=== PATIENT | female | born 1955 | race Caucasian/White ===

== ENCOUNTER 2016-05-11 19:09 | Emergency (ER) | payer MEDICAID ==
[~2016-05-11 19:09] MED LIST: COLACE-DPS100 MG PO; ELIQUIS5 MG PO; HYDROCODONE 5MG/5 MG PO; HYDRODIURIL-DPS25 MG PO; MAALOX DPS30 ML PO; PRAVACHOL40 MG PO; SURFAK DPS240 MG PO; SYNTHROID DP0.075 MG PO; TYLENOL DPS325 MG PO
--- NOTE | 2016-05-12 13:41 | ER ---
ADMIT: 05/11/2016 RM/LOC: ER [facility] MR#: [id number] [address] [facility] [address] [place], [place] [address] JESSA TORRESBRITTNEYGA Demetrio [address] [place] [id number] Emergency Room Report SEX: F AGE: 60 : 1955 DATE: 05/11/2016 HISTORY OF PRESENT ILLNESS: The patient is a 60-year-old female with past medical history of prediabetic and atrial fibrillation, on Eliquis, who came to the ER with chief complaint of right vulvar mass and tenderness and pain and pus discharge for the last 15 days, which is getting worse. The patient states she has similar episodes in the past, which resolved spontaneously but this one is getting bigger. The patient denies any followup for this problem. The patient denies any fever at home or any vaginal bleeding or discharge. PHYSICAL EXAMINATION: There is about wound 1 x 1 cm fluctuation on the right labia majora in the vulvar area, outside the labia majora in the vulvar area and when I checked the introitus and opening of the vagina, there is no tenderness or bulging of the Bartholin cyst and there is no tenderness or mass from the inside and all the mass is on the vulvar area subcutaneous abscess. This there is very mild erythema around it, may be 5 mm, totally and also there is an opening into the subcutaneous abscess with 1 drop of pus at the top of it. After prepping the area and locally anesthetizing it with 2% lidocaine, it was incised with a small incision and the pocket was opened about one mL pus came out totally. There were no active bleeding, totally less than 1 mL bleeding. The pain was controlled. The patient was discharged to home with oral antibiotics and follow up with the primary doctor. The patient was advised to come back if there is any fever or changes in the mass. The patient was given pain control medications, and advised on keeping the area clean and dry, using soap and water to clean it, using sitz baths as needed. The patient was advised not to shave until the problem is resolved. The patient was discharged to home. Manuel Whitlock MD/ camelia JOB #: [id number] CC: Fabian Lo MD, Attending Physician Kira Owens APRN-[employer], Family Physician
[2016-11-29] MEDS ORDERED: LOPRESSOR DPS50 MG PO (19:11)
[2016-11-29] MEDS ORDERED: ASA CHILDREN'S81 MG PO (19:12)
[2016-11-29] MEDS ORDERED: ZANAFLEX4 MG PO (19:12)
[2016-11-29] MEDS ORDERED: NITROSTAT0.4 MG SL (19:13)
[2016-11-29] MEDS ORDERED: PLAVIX75 MG PO (19:13)
[2016-11-29] MEDS ORDERED: SYNTHROID50 MCG PO (19:14)
[2016-11-29] MEDS ORDERED: XALATAN2.5 ML OU (19:14)
[2016-11-29] MEDS ORDERED: NORVASC5 MG PO (19:14)
[2016-11-29] MEDS ORDERED: GLUCOPHAGE-DPS500 MG PO (19:15)
[2016-11-29] MEDS ORDERED: KENALOG OINT. 015 GM TP (19:15)
[2016-11-29] MEDS ORDERED: ZESTRIL DPS40 MG PO (19:15)
[2016-11-29] MEDS ORDERED: XARELTO20 MG PO (19:16)
== END 2016-05-11 20:50 | disposition home or self-care (01) ==
LOC: ER 19:09
PROC: 0U9MXZZ Drainage of Vulva, External Approach (ICD-10-PCS; principal; 2016-05-11)
DX: N76.4 Abscess of vulva (principal); I10 Essential (primary) hypertension; E11.9 Type 2 diabetes mellitus without complications; Z88.0 Allergy status to penicillin

== ENCOUNTER 2016-07-27 17:18 | Emergency (ER) | payer MEDICAID ==
--- NOTE | 2016-08-31 15:32 | ER ---
ADMIT: 07/27/2016 RM/LOC: ER [facility] MR#: [id number] [address] [facility] [id number] [place], [place] [address] JESSA SHONA TARA LEE [address] [place] [id number] Emergency Room Report SEX: F AGE: 60 : 1955 DATE: ADDENDUM: CHIEF COMPLAINT: Painful labia. HISTORY OF PRESENT ILLNESS: This is a 60-year-old female, who has a history of having Bartholin cyst before. She presents with that same kind of pain. On examination, she does have swelling to the right labia. Incision and drain was done here in the emergency room. I am sending her home with Keflex, Bactrim, and [place]. , I am dispensing 14 tablets, 28 tablets, [place] 6 from here and 14 from the outside pharmacy. CLINICAL IMPRESSION: Bartholin cyst. BETTY Bui / Bunny Dupont MD / camelia JOB #: [id number] CC: Giovanni Katz MD, Attending Physician
[2016-11-29] MEDS ORDERED: LOPRESSOR DPS50 MG PO (19:11)
[2016-11-29] MEDS ORDERED: ASA CHILDREN'S81 MG PO (19:12)
[2016-11-29] MEDS ORDERED: ZANAFLEX4 MG PO (19:12)
[2016-11-29] MEDS ORDERED: NITROSTAT0.4 MG SL (19:13)
[2016-11-29] MEDS ORDERED: PLAVIX75 MG PO (19:13)
[2016-11-29] MEDS ORDERED: NORVASC5 MG PO (19:14)
[2016-11-29] MEDS ORDERED: XALATAN2.5 ML OU (19:14)
[2016-11-29] MEDS ORDERED: SYNTHROID50 MCG PO (19:14)
[2016-11-29] MEDS ORDERED: KENALOG OINT. 015 GM TP (19:15)
[2016-11-29] MEDS ORDERED: GLUCOPHAGE-DPS500 MG PO (19:15)
[2016-11-29] MEDS ORDERED: ZESTRIL DPS40 MG PO (19:15)
[2016-11-29] MEDS ORDERED: XARELTO20 MG PO (19:16)
== END 2016-07-27 19:00 | disposition home or self-care (01) ==
LOC: ER 17:18
PROC: 0U9LXZZ Drainage of Vestibular Gland, External Approach (ICD-10-PCS; principal; 2016-07-27)
DX: N75.0 Cyst of Bartholin's gland (principal); E11.9 Type 2 diabetes mellitus without complications; Z88.0 Allergy status to penicillin; Z79.899 Other long term (current) drug therapy